=== PATIENT | female | born 1975 | race Caucasian/White ===

== ENCOUNTER 2024-11-03 09:28 | Emergency (ER) | payer OTHER, SELFPAY ==
[2024-11-03 09:44] VITALS: BP 120/66; PULSE 88; RESP 18; TEMP 36.8; O2SAT 96; BMI 15.5
--- NOTE | 2024-11-03 09:49 | PD.EDDENTL ---
ED Dental RME/HPI General Chief complaint: Dental/Oral/Throat Stated complaint: LEFT SIDED JAW SWELLING / PAIN Time Seen by Provider: 11/03/24 09:43 Arrival date/time: 11/03/24 09:28 49-year-old female presents emergency department complains of left lower jaw pain and swelling patient reports gingival swelling patient ports history of the same Limitations: no limitations Related Data Previous Rx's ?Medication ?Instructions ?Recorded clindamycin HCl 300 mg capsule 300 mg PO TID 7 days #21 caps 11/03/24 hydrocodone 5 mg-acetaminophen 325 1 tab PO BID PRN pain #6 tabs 11/03/24 mg tablet ibuprofen 600 mg tablet 600 mg PO Q6H #30 tabs 11/03/24 Allergies Allergy/AdvReac Type Severity Reaction Status Date / Time ampicillin Allergy Severe Rash Verified 11/03/24 09:32 acetaminophen [From Tylenol] AdvReac Severe Abdominal Unverified 11/03/24 09:33 Pain Opioids - Morphine Analogues AdvReac Severe Nausea Verified 11/03/24 09:33 Review of Systems Review of Systems Systems Reviewed: All systems reviewed, normal except as documented Constitutional Constitutional: Reports system reviewed and no additional complaints, except as documented, Denies fever(s) and Denies headache(s) Eyes Eyes: Reports system reviewed and no additional complaints, except as documented and Denies blurry vision ENT Ears, Nose, Mouth, and Throat: Reports system reviewed and no additional complaints, except as documented, Denies headache(s), Denies nasal congestion, Denies nasal discharge and Reports other (Swelling) Cardiovascular Cardiovascular: Reports system reviewed and no additional complaints, except as documented, Denies chest pain and Denies dyspnea Respiratory Respiratory: Reports system reviewed and no additional complaints, except as documented, Denies chest congestion, Denies cough and Denies dyspnea Gastrointestinal Gastrointestinal: Reports system reviewed and no additional complaints, except as documented and Denies abdominal pain Integumentary/Breasts Skin/Breast: Reports system reviewed and no additional complaints, except as documented and Denies rash Neurologic Neurologic: Reports system reviewed and no additional complaints, except as documented, Reports as per HPI and Denies headache(s) Past Medical History Social History SMOKING STATUS: Current every day smoker ED Exam General Limitations: Present no limitations General appearance: Present alert and in no apparent distress Head Head exam: Present atraumatic Eye Eye exam: Present normal appearance, PERRL and EOMI ENT ENT exam: Present mucous membranes moist and other (Gingival swelling) Neck Neck exam: Present normal inspection, full ROM and trachea midline Chest Chest inspection: Present normal inspection and symmetric chest wall rise Respiratory Respiratory exam: Present normal lung sounds bilaterally Cardiovascular Cardiovascular exam: Present regular rate, normal rhythm and normal heart sounds Abdominal Exam Abdominal exam: Present soft and normal bowel sounds Extremities Exam Extremities exam: Present normal inspection and full ROM Back Exam Back exam: Present normal inspection and full ROM Neurological Exam Neurological exam: Present alert, oriented X3 and CN II-XII intact Psychiatric Psychiatric exam: Present normal affect and normal mood Skin Skin exam: Present warm, dry, intact and normal color Course Quality Measures none Orders Category Date Time Status Clindamycin Vial [Cleocin vial] Med 11/03/24 09:49 Discontinued 600 mg IM X1 ONE Ibuprofen Tab [Motrin Tab] Med 11/03/24 09:49 Discontinued 600 mg PO X1 ONE Vital Signs Vital signs: Vital Signs Temperature 98.3 F 11/03/24 09:44 Pulse Rate 88 11/03/24 09:44 Respiratory Rate 18 11/03/24 09:44 Blood Pressure 120/66 11/03/24 09:44 Pulse Oximetry (%) 96 11/03/24 09:44 Oxygen Delivery Method Room Air 11/03/24 09:44 O2 saturation 96% room air within normal limits Dental / Oral MDM Narrative MDM Narrative:: 49-year-old female presents emergency department complains of left lower jaw pain and swelling patient reports gingival swelling patient ports history of the same On exam patient well-appearing patient is not appear ill or toxic patient not appear in acute distress On exam patient has left lower jaw swelling and pain symptoms consistent with gingival swelling/gingival infection Patient given clindamycin here discharged home with pain medication antibiotics Patient has no evidence of Nish angina no neck swelling no difficulty swallowing or breathing Patient discharged home in no distress to follow-up with primary care doctor in the next 24 to 48 hours and for any worsening symptoms to return to the ER immediately Patient data External records reviewed:: [facility] previous records Clinical information provided by:: patient Social determinants that could affect healthcare access:: none Patient has the following chronic illnesses:: None How is presenting disease/condition affected by chronic disease/condition?: no chronic disease Evaluation data The following diagnostics were reviewed and interpreted by me:: other (specify) (N/A) Lab and/or radiology exams considered but not ordered:: Consider not ordered Interpretation Summary: N/A Medications / Prescriptions Medications or Prescriptions considered but not ordered:: Given Medication administrations:: Medication Administration History Discontinued Medications Clindamycin Phosphate (Clindamycin Phos Inj 150 Mg/Ml Vial 6 Ml) 600 mg IM X1 ONE Stop: 11/03/24 09:50 Last Admin: 11/03/24 09:57 Dose: 600 mg Documented By: AM Ibuprofen (Ibuprofen Tab 600 Mg Tablet) 600 mg PO X1 ONE Stop: 11/03/24 09:50 Last Admin: 11/03/24 09:57 Dose: 600 mg Documented By: AM Given Consultations Consultation(s) initiated? (list below): No Diagnosis Dental Differential Diagnosis: gingival abscess, dental caries, toothache and dental abscess Most likely diagnosis given after review of the tests above:: Gingival abscess Admission Indicated Admission indicated?: not indicated Admission Request Was there a request for admission?: No Disposition Plan Disposition Plan: Discharge Discharge Attestation Discharge Attestation: The patient and all family members were given an opportunity to ask questions and understood the discharge instructions. Discharge instructions specifically effects, indications for sooner follow up or return to the emergency department, and the expected course of current diagnosis. Patient condition: Stable Discharge Plan Plan Patient Disposition: HOME (Self Care) Disposition Comment: stable Prescriptions/Referrals Prescriptions/Med Rec: New clindamycin HCl 300 mg capsule 300 mg PO TID 7 Days Qty: 21 0RF hydrocodone-acetaminophen 5-325 mg tablet 1 tab PO BID MDD 10 PRN (Reason: pain) Qty: 6 0RF ibuprofen 600 mg tablet 600 mg PO Q6H Qty: 30 0RF Problem List Clinical Impression: Gingival abscess Patient/Caregiver Discharge Instructions Education Materials: Diabetes Gum Disease Additional Instructions: Please follow up with your dentist in the next 24-48hrs for any worsening symptoms return here immediately Print Language: Latvian Stand Alone Forms: Jessica Award Info., Patient Portal Info Letter PA/[employer] Supervising Physician PA/BESS Supervising Physician: Dr Lynn
[2024-11-03] MEDS: CLINDAMYCIN PHOS INJ 150 MG/ML VIAL 6 ML 600 MG IM (09:57)
[2024-11-03] MEDS: IBUPROFEN TAB 600 MG TABLET PO (09:57)
== END 2024-11-03 10:16 | disposition home or self-care (01) ==
LOC: SERX 10:15
PROVIDERS: Emergency Provider Emergency Medicine
DX: K05.20 Aggressive periodontitis, unspecified (principal)
CPT/HCPCS: 96372; 99283; J0736; A9270